=== PATIENT | male | born 2005 ===

== ENCOUNTER 2024-05-29 16:00 | Outpatient (CLI) | payer BC | END 2024-05-29 16:01 | disposition home or self-care (01) | LOC: CSHSLEEP 16:00 | PROVIDERS: ATTEND Internal Medicine | DX: G47.10 Hypersomnia, unspecified (principal); R53.83 Other fatigue; G47.33 Obstructive sleep apnea (adult) (pediatric) | CPT/HCPCS: 95810 ==